=== PATIENT | female | born 1945 | race African-American/Black ===

== ENCOUNTER 2018-03-29 22:59 | Emergency (ER) | payer MEDICARE, OTHER ==
[2018-03-29 23:42] LABS: #Basophils 0.1 thou/uL (0.0-0.2); #Lymphocytes 1.5 thou/uL (1.20-3.40); #Monocytes 0.4 thou/uL (0.11-0.59); #Neutrophils 4.5 thou/uL (1.40-6.50); %Basophils 1.1 % (0.0-1.0); %Eosinophils 0.3 % (0.0-10.0); %Monocytes 6.8 % (0.0-10.0); %Neutrophils 68.9 % (42.0-75.0); Mean Corpuscular HGB CONC 32.6 g/dL (32.0-36.0); Mean Corpuscular Hemoglobin 30.7 pg (27.0-31.0); Mean Corpuscular Volume 94.4 fL (78.0-98.0); Mean Platelet Volume 6.5 fL (7.4-10.4); Platelet Count 398 thou/uL (130-400); RBC Distribution Width 11.7 % (11.5-14.5); Red Blood Cell (RBC) Count 5.54 mill/uL (4.20-5.40); White Blood Cell (WBC) Count 6.5 thou/uL (4.8-10.8)
--- NOTE | 2018-03-29 23:44 | RAD ---
TWO VIEW CHEST: History: Chest pain. FINDINGS: No evidence of infiltrate. Heart size is normal. Vascular markings within normal range. Degenerative spine changes. IMPRESSION: No acute lung process apparent. POS: [facility]
[2018-03-29] MEDS ORDERED: Ondansetron PF 4 MG/2 ML Vial ONE (23:50)
[2018-03-29] MEDS ORDERED: Sodium Chloride 0.9% 1,000 ML ONE (23:50)
[2018-03-29] MEDS ORDERED: Morphine 4 MG/ML VIAL ONE (23:50)
[2018-03-29 23:53] LABS: Bilirubin Moderate (Negative); Blood, Urine Moderate (Negative); Clarity Cloudy (Clear); Glucose, Urine (Dipstick) 100 mg/dL (Negative); Leukocyte Large (Negative); Nitrite Negative (Negative); Protein, Urine (Dipstick) > or equal to 300 mg/dL (Neg-Trace); Urobilinogen > or = 8.0 mg/dL (0.2-1.0)
[2018-03-29 23:55] LABS: ALT (SGPT) 35 U/L (8-55); AST (SGOT) 65 U/L (5-34); Albumin 3.6 g/dL (3.4-4.8); Alkaline Phosphatase 78 U/L (40-150); Anion Gap 17 mmol/L (10-20); BUN (Urea Nitrogen) 25 mg/dL (9.8-20.1); Bilirubin, Total 0.8 mg/dL (0.2-1.2); Calc. Creatinine Clearance 0 mL/min (70-130); Calcium 10.2 mg/dL (7.8-10.44); Carbon Dioxide 23 mmol/L (23-31); Chloride 98 mmol/L (98-107); Estimated GFR-MDRD 39; Globulin 5.8 g/dL (2.4-3.5); Glucose 168 mg/dL (83-110); Potassium 3.7 mmol/L (3.5-5.1); Protein, Total 9.4 g/dL (6.0-8.3); Sodium 134 mmol/L (136-145)
[2018-03-29 23:55] LABS: Bacteria/HPF 4+ HPF (None Seen); RBC/HPF 0-3 HPF (0-3); Squamous Epithelial 0-3 HPF (0-3)
[2018-03-30] MEDS ORDERED: cefTRIAXone\\ROCEPHIN 2 GM VIAL ONE (00:08)
[2018-03-30] MEDS ORDERED: Sodium Chloride 0.9% 250 ML 250 ML ONE (00:09)
[2018-03-30] MEDS ORDERED: Sodium Chloride 0.9% 100 ML ONE (00:09)
== END 2018-03-30 01:52 | disposition short-term general hospital (02) ==
LOC: NAV ERS 22:59
DX: A41.9 Sepsis, unspecified organism (principal); G89.4 Chronic pain syndrome; I10 Essential (primary) hypertension; N61.0 Mastitis without abscess; F17.210 Nicotine dependence, cigarettes, uncomplicated; Z79.899 Other long term (current) drug therapy
CPT/HCPCS: 71046; 80053; 81003; 81015; 83605; 85025; 87040; 96361; 96365; 96375; J0696; J2270; J2405; J3370; J7050

== ENCOUNTER 2018-10-16 14:05 | Emergency (ER) | payer MEDICARE, OTHER ==
[2018-10-16] MEDS ORDERED: Bisacodyl 10 MG SUPP ONE (14:48)
--- NOTE | 2018-10-16 15:09 | RAD ---
XR Abdomen 2 View History: [Pain] Comparison: None. Findings: On the upright view there is no free air under the hemidiaphragms. There is extensive stool burden throughout the rectum. No dilated air-filled loops of large or small bowel. No abnormal calcifications projecting over the renal shadows. Moderate vascular calcifications. Impression: Large volume stool within the rectum.
[2018-10-16] MEDS ORDERED: Morphine 4 MG/ML VIAL ONE (15:28)
[2018-10-16] MEDS ORDERED: Fleet Enema 133 ML BOT ONE (15:28)
[2018-10-16] MEDS ORDERED: Sodium Chloride 0.9% 1,000 ML ONE (15:28)
[2018-10-16 15:56] LABS: #Basophils 0.1 thou/uL (0.0-0.2); #Eosinphils 0.1 thou/uL (0.0-0.7); #Lymphocytes 1.7 thou/uL (1.20-3.40); #Monocytes 0.7 thou/uL (0.11-0.59); #Neutrophils 4.1 thou/uL (1.40-6.50); %Basophils 1.4 % (0.0-1.0); %Eosinophils 0.9 % (0.0-10.0); %Lymphocytes 25.3 % (21.0-51.0); %Monocytes 10.2 % (0.0-10.0); %Neutrophils 62.2 % (42.0-75.0); Hemoglobin 10.9 g/dL (12.0-16.0); Mean Corpuscular HGB CONC 30.3 g/dL (32.0-36.0); Mean Corpuscular Hemoglobin 29.4 pg (27.0-31.0); Mean Corpuscular Volume 96.9 fL (78.0-98.0); Mean Platelet Volume 5.6 fL (7.4-10.4); Platelet Count 307 thou/uL (130-400); RBC Distribution Width 17.6 % (11.5-14.5); White Blood Cell (WBC) Count 6.6 thou/uL (4.8-10.8)
[2018-10-16 16:10] LABS: ALT (SGPT) 39 U/L (8-55); AST (SGOT) 67 U/L (5-34); Albumin 3.1 g/dL (3.4-4.8); Alkaline Phosphatase 101 U/L (40-150); Anion Gap 14 mmol/L (10-20); BUN (Urea Nitrogen) 12 mg/dL (9.8-20.1); Bilirubin, Total 0.4 mg/dL (0.2-1.2); Calc. Creatinine Clearance 0 mL/min (70-130); Calcium 9.1 mg/dL (7.8-10.44); Carbon Dioxide 23 mmol/L (23-31); Chloride 105 mmol/L (98-107); Estimated GFR-MDRD Greater than 90; Globulin 4.4 g/dL (2.4-3.5); Glucose 87 mg/dL (83-110); Potassium 4.3 mmol/L (3.5-5.1); Protein, Total 7.5 g/dL (6.0-8.3); Sodium 138 mmol/L (136-145)
== END 2018-10-16 16:50 | disposition home or self-care (01) ==
LOC: NAV ERS 14:05
DX: K59.00 Constipation, unspecified (principal); I10 Essential (primary) hypertension; Z79.899 Other long term (current) drug therapy
CPT/HCPCS: 74019; 80053; 82274; 85025; 96361; 96374; J2270; J7050

== ENCOUNTER 2019-09-28 13:44 | Inpatient (IN) | payer MEDICARE, OTHER ==
[2019-09-28 15:43] VITALS: BMI 24.1
[2019-09-28] MEDS ORDERED: Senokot S 8.6-50 MG TAB PO PRN (17:22)
[2019-09-28] MEDS: Gabapentin 300 MG CAP PO SCH (20:50)
[2019-09-28] MEDS: Saccharomyces boulardii 250 MG CAP PO SCH (20:51)
[2019-09-28] MEDS: HYDROcodone/Acetaminophen 5/325 mg Tablet PO PRN (20:53)
[2019-09-29] MEDS: Magnesium Chloride 64 MG TAB PO SCH ×3 (00:24→21:48)
[2019-09-29 05:56] LABS: AST (SGOT) 37 U/L (5-34); Albumin 1.8 g/dL (3.4-4.8); Alkaline Phosphatase 65 U/L (40-110); Anion Gap 11 mmol/L (10-20); BUN (Urea Nitrogen) 9 mg/dL (9.8-20.1); Bilirubin, Total 0.3 mg/dL (0.2-1.2); Calc. Creatinine Clearance 87 mL/min (70-130); Calcium 8.4 mg/dL (7.8-10.44); Carbon Dioxide 23 mmol/L (23-31); Chloride 104 mmol/L (98-107); Estimated GFR-MDRD Greater than 90; Globulin 4.5 g/dL (2.4-3.5); Glucose 85 mg/dL (83-110); Potassium 4.7 mmol/L (3.5-5.1); Protein, Total 6.3 g/dL (6.0-8.3); Sodium 133 mmol/L (136-145)
[2019-09-29 06:05] LABS: ALT (SGPT) 21 U/L (8-55)
[2019-09-29 06:14] LABS: Hemoglobin 8.4 g/dL (12.0-16.0); Hypochromia SLIGHT = 6-15 cells (100X) (0-5/hpf); Lymphocytes 16 % (21-51); MDiff Complete? YES; Mean Corpuscular HGB CONC 30.3 g/dL (32.0-36.0); Mean Corpuscular Hemoglobin 33.2 pg (27.0-31.0); Mean Platelet Volume 7.4 fL (7.4-10.4); Monocytes 3 % (0-10); Neutrophil 81 % (42-75); Platelet Count 308 thou/uL (130-400); Platelet Morphology Comment Appears Adequate; RBC Distribution Width 16.8 % (11.5-14.5); Red Blood Cell (RBC) Count 2.54 mill/uL (4.20-5.40); White Blood Cell (WBC) Count 7.5 thou/uL (4.8-10.8)
[2019-09-29] MEDS: Cefdinir 300 MG CAP PO SCH (08:42)
[2019-09-29] MEDS: Citalopram 10 MG TAB PO SCH (08:42)
[2019-09-29] MEDS: Gabapentin 300 MG CAP PO SCH ×3 (08:42→21:15)
[2019-09-29] MEDS ORDERED: Magnesium Chloride 64 MG TAB PO SCH (10:15)
[2019-09-29] MEDS: Saccharomyces boulardii 250 MG CAP PO SCH (21:15)
[2019-09-30] MEDS: Cefdinir 300 MG CAP PO SCH (08:27)
[2019-09-30] MEDS: Gabapentin 300 MG CAP PO SCH ×3 (08:28→21:06)
[2019-09-30] MEDS: Magnesium Chloride 64 MG TAB PO SCH ×2 (08:28→21:07)
[2019-09-30] MEDS: Citalopram 10 MG TAB PO SCH (08:28)
--- NOTE | 2019-09-30 14:36 | PRG ---
DATE OF SERVICE: 09/30/2019 SUBJECTIVE: The patient feels well, recently returned from oncologist appointment, who states that he will put off her chemotherapy till next week until she is stronger. She has had no palpitations or chest pain. She has been eating well and is ready to work with therapy. OBJECTIVE: Shows VITAL SIGNS: Her blood pressure is 130/63, temperature 98, pulse 90, respirations 18, O2 saturations 96% on room air. LUNGS: Clear with decreased breath sounds in the right base. CARDIAC: Regular rhythm. BREASTS: Bilateral mastectomy. ABDOMEN: Soft and nontender. NEUROLOGIC: Intact. LABORATORY DATA: Show white count 7500, hematocrit 27, hemoglobin 8.4. Sodium 133, potassium 4.7, chloride 104, bicarb 23, BUN 9, creatinine 0.61, albumin 1.8. ASSESSMENT AND PLAN: Metastatic breast cancer, on chemotherapy with severe malnutrition and cachexia, who has recently had episode of pneumococcal pneumonia, sepsis, bacteremia, and empyema requiring decortication, on IV antibiotics, now on cefdinir, improving with no further respiratory distress, but with severe weakness. She is undergoing PT and OT. She has had a complication of episode of supraventricular tachycardia and then with a 5-second pause, but Electrophysiology has recommended to monitor and to follow up her as an outpatient. Job ID: [id number]
--- NOTE | 2019-09-30 16:20 | HP ---
HISTORY OF PRESENT ILLNESS: The patient is a 74-year-old black female, previously seen by myself, who was recently admitted to [facility] for diagnosis of acute onset of pneumonia with pneumococcal sepsis and empyema requiring IV antibiotics, chest tube placement and decortication. She did develop supraventricular tachycardia with a 5-second pause, and therefore, had an event monitor placed by Dr. Sinha. She has a history of metastatic breast cancer with bilateral mastectomies, being treated by Dr. Renee on chemotherapy 3 weeks out of 4. It was felt this contributed to her acute septic shock. She did, however, recover well, who is very weak and was unable to care for herself. She lives alone at home and therefore was transferred to [facility] for strengthening conditioning. PAST MEDICAL HISTORY: Remarkable also for a history of drug use and alcohol use. She has a history also of gout, hypertension. PAST SURGICAL HISTORY: Positive for the bilateral mastectomy, left knee repair. FAMILY MEDICAL HISTORY: Positive for heart disease. REVIEW OF SYSTEMS: HEENT: She denies any headaches or dizziness. Does have some mild shortness of breath, improving. Mainly weak at this time. RESPIRATORY: She has no cough, sputum production now. CARDIAC: No chest pain or palpitation. GASTROINTESTINAL: She denies any nausea, vomiting, diarrhea, constipation, or abdominal pain. GENITOURINARY: Denies any dysuria, hematuria, or nocturia. MUSCULOSKELETAL: Denies any pain or stiffness in her joints. PHYSICAL EXAMINATION: GENERAL: The patient is a thin, cachectic black female in no acute distress. Oriented x3 and fairly cooperative. VITAL SIGNS: Showed her to have blood pressure of 142/79, temperature 97.6, pulse 107, respirations 20, O2 saturations 95% on room air. HEENT: Pupils equal, round, and reactive to light and accommodation. Sclerae anicteric. Conjunctivae pale. Oral mucous membranes well hydrated. NECK: Supple. There are no nodes or masses. JVP is not elevated. LUNGS: Show decreased breath sounds in the right base. No rales, rhonchi, or wheezes. CARDIAC: Showed regular rhythm. ABDOMEN: Soft and nontender. SKIN AND EXTREMITIES: Show no edema, clubbing, or cyanosis. There are bilateral mastectomies. NEUROLOGICAL: Shows no focal finding. ASSESSMENT: A 74-year-old black female with a history of metastatic breast cancer on chemotherapy, admitted with septic shock with pneumonia, pneumococcal bacteremia, empyema requiring chest tube and decortication, but now has improved, except with severe weakness and is admitted to [facility] for strengthening while monitoring her complete improvement. PLAN: 1. Continue cefdinir 600 daily. 2. Follow up with Dr. Renee tomorrow. 3. Continue gabapentin 300 three times daily. 4. Start PT, OT. 5. Start on probiotics. Job ID: [id number]
[2019-09-30] MEDS: Saccharomyces boulardii 250 MG CAP PO SCH (21:06)
[2019-10-01] MEDS: Cefdinir 300 MG CAP PO SCH (08:30)
[2019-10-01] MEDS: Acetaminophen 325 MG TAB PO PRN ×2 (08:30→21:09)
[2019-10-01] MEDS: Citalopram 10 MG TAB PO SCH (08:30)
[2019-10-01] MEDS: Gabapentin 300 MG CAP PO SCH ×3 (08:30→21:09)
[2019-10-01] MEDS: HYDROcodone/Acetaminophen 5/325 mg Tablet PO PRN ×2 (08:31→14:26)
[2019-10-01] MEDS: Magnesium Chloride 64 MG TAB PO SCH ×2 (08:34→21:09)
--- NOTE | 2019-10-01 16:26 | PRG ---
DATE OF SERVICE: 10/01/2019 SUBJECTIVE: Ms. Paz is resting in bed and denies any concerns. Discussed with nursing. No family at bedside. OBJECTIVE: VITAL SIGNS: She is afebrile, heart rate 81, respirations 20, oxygen saturation 94% on room air, and blood pressure 146/71. CARDIOVASCULAR SYSTEM: S1 and S2 plus. RESPIRATORY SYSTEM: Normal vesicular breath sounds. ABDOMEN: Soft, nontender. Bowel sounds heard in all quadrants. EXTREMITIES: Without cyanosis or clubbing. CENTRAL NERVOUS SYSTEM: Awake and responsive. Cranial nerves 2 through 12 intact. Generalized weakness. IMPRESSION: 1. Anemia, likely due to chronic disease. 2. History of metastatic breast cancer. 3. Recent pneumonitis and empyema. 4. Hypertension. 5. Gout. 6. Deconditioning. PLAN: 1. Continue current medications. 2. Nutritional support. 3. Monitor respiratory status. 4. DVT and stress ulcer prophylaxis. 5. Decubitus precautions. 6. Routine laboratory values. 7. Physical therapy. Job ID: [id number]
[2019-10-01] MEDS: Saccharomyces boulardii 250 MG CAP PO SCH (21:09)
[2019-10-02] MEDS: Citalopram 10 MG TAB PO SCH (09:01)
[2019-10-02] MEDS: Gabapentin 300 MG CAP PO SCH ×3 (09:01→20:25)
[2019-10-02] MEDS: Cefdinir 300 MG CAP PO SCH (09:01)
[2019-10-02] MEDS: Magnesium Chloride 64 MG TAB PO SCH ×2 (09:01→20:24)
--- NOTE | 2019-10-02 13:03 | PRG ---
DATE OF SERVICE: 10/02/2019 SUBJECTIVE: Ms. Paz is resting in bed. Denies any complaints. No family at bedside. Discussed with nursing. OBJECTIVE: VITAL SIGNS: She is afebrile. Heart rate 75, respirations 18, oxygen saturation 97% on room air, blood pressure 147/75. CARDIOVASCULAR: S1 and S2 plus. RESPIRATORY: Normal vesicular breath sounds. ABDOMEN: Soft, nontender. Bowel sounds heard in all quadrants. EXTREMITIES: Without cyanosis or clubbing. CENTRAL NERVOUS SYSTEM: Grossly nonfocal. Significant deconditioning. IMPRESSION: 1. Anemia due to chronic disease. 2. Resolving pneumonitis and empyema. 3. Hypertension. 4. Gout. 5. Deconditioning. 6. History of metastatic breast cancer. PLAN: 1. Continue current medications. 2. Encourage p.o. intake. 3. Monitor respiratory status and breathing treatments as needed. 4. DVT prophylaxis with PlexiPulses. 5. Decubitus precautions. 6. Stress ulcer prophylaxis. 7. Routine laboratory values. 8. Continue therapy. Job ID: [id number]
[2019-10-02] MEDS: Acetaminophen 325 MG TAB PO PRN (20:24)
[2019-10-02] MEDS: Saccharomyces boulardii 250 MG CAP PO SCH (20:25)
[2019-10-03] MEDS: Citalopram 10 MG TAB PO SCH (09:15)
[2019-10-03] MEDS: Gabapentin 300 MG CAP PO SCH ×3 (09:15→21:07)
[2019-10-03] MEDS: Magnesium Chloride 64 MG TAB PO SCH ×2 (09:15→21:06)
[2019-10-03] MEDS: Acetaminophen 325 MG TAB PO PRN ×2 (09:15→21:06)
--- NOTE | 2019-10-03 17:59 | PRG ---
DATE OF SERVICE: 10/03/2019 Normal vesicular breath sounds. ABDOMEN: Soft, nontender. Bowel sounds in all quadrants. EXTREMITIES: Without cyanosis, clubbing. CENTRAL NERVOUS SYSTEM: Grossly nonfocal. IMPRESSION: 1. Resolving pneumonitis and empyema. 2. Hypertension. 3. Gout. 4. Improving deconditioning. 5. History of metastatic breast cancer. 6. Anemia of chronic disease. PLAN: 1. Continue current medications. 2. Nutritional support. 3. Monitor respiratory status. 4. DVT prophylaxis. 5. Decubitus precautions. 6. Stress ulcer prophylaxis. 7. Discharge planning. 8. Dr. Latricia chandler [facility]. Job ID: [id number]
[2019-10-03] MEDS: Saccharomyces boulardii 250 MG CAP PO SCH (21:07)
[2019-10-04] MEDS: Gabapentin 300 MG CAP PO SCH ×3 (08:39→20:36)
[2019-10-04] MEDS: Citalopram 10 MG TAB PO SCH (08:39)
[2019-10-04] MEDS: Magnesium Chloride 64 MG TAB PO SCH ×2 (08:40→20:36)
[2019-10-04] MEDS ORDERED: Collagenase 250 UNITS/GM Ointment 30 GM TUBE TOP SCH (16:45)
[2019-10-04] MEDS: Saccharomyces boulardii 250 MG CAP PO SCH (20:36)
[2019-10-04] MEDS: Acetaminophen 325 MG TAB PO PRN (20:36)
[2019-10-05] MEDS: Gabapentin 300 MG CAP PO SCH ×3 (08:30→21:31)
[2019-10-05] MEDS: Citalopram 10 MG TAB PO SCH (08:30)
[2019-10-05] MEDS: Magnesium Chloride 64 MG TAB PO SCH ×2 (08:30→21:32)
[2019-10-05] MEDS: HYDROcodone/Acetaminophen 5/325 mg Tablet PO PRN (08:31)
[2019-10-05] MEDS: Saccharomyces boulardii 250 MG CAP PO SCH (21:30)
[2019-10-06] MEDS: HYDROcodone/Acetaminophen 5/325 mg Tablet PO PRN (05:41)
[2019-10-06 07:56] VITALS: BP 115/67; TEMP 97.9
[2019-10-06] MEDS: Citalopram 10 MG TAB PO SCH (08:36)
[2019-10-06] MEDS: Magnesium Chloride 64 MG TAB PO SCH (08:36)
[2019-10-06] MEDS: Gabapentin 300 MG CAP PO SCH (08:36)
== END 2019-10-06 10:45 | disposition home or self-care (01) | DRG 871 ==
LOC: NAV ACUTE 13:44
PROVIDERS: ADMIT Internal Medicine; ATTEND Internal Medicine
DX: A40.3 Sepsis due to Streptococcus pneumoniae (principal); R65.21 Severe sepsis with septic shock; E43 Unspecified severe protein-calorie malnutrition; J18.9 Pneumonia, unspecified organism; I47.1 Supraventricular tachycardia; Z68.1 Body mass index [BMI] 19.9 or less, adult; R64 Cachexia; J43.9 Emphysema, unspecified; C50.919 Malignant neoplasm of unspecified site of unspecified female breast; I10 Essential (primary) hypertension; D63.1 Anemia in chronic kidney disease; R53.81 Other malaise; C50.912 Malignant neoplasm of unspecified site of left female breast; C50.911 Malignant neoplasm of unspecified site of right female breast; M10.9 Gout, unspecified; Z90.13 Acquired absence of bilateral breasts and nipples
CPT/HCPCS: 80053; 85007; 85027